=== PATIENT | female | born 1995 | race Caucasian/White ===

== ENCOUNTER 2017-12-22 22:26 | Emergency (ER) | payer BC ==
[2017-12-22] MEDS ORDERED: IBUPROFEN 600 MG TAB PO ONE (22:44)
--- NOTE | 2017-12-22 23:02 | EDPHY ---
H & P Stated Complaint: c/o blanco after accidentally being hit in back of head with metal thermos Time Seen by Provider: 12/22/17 22:34 HPI/ROS: Chief Complaint: Head injury HPI: 22-year-old woman was accidentally struck in the head by a metal dermis when her friend was swinging at an insect. She did not have a loss of conscious. She is complaining of a headache. No nausea or vomiting. No vision or hearing changes. She has a history of concussions in the past was concerned that she might have another concussion. Headache now is a 7/10. She did take some Tylenol earlier. ROS: 10 point Review of Systems is negative except as noted in the HPI. PMH: Concussion Social History: Positive smoking, occasional alcohol, no recreational drug use Family History: non-contributory Physical Exam: Gen: Awake, Alert, No Distress HEENT: Scalp: Mild tenderness in the right occipital area, no hematoma, no step-offs or crepitus Nose: no rhinorrhea Eyes: PERRLA, EOMI Mouth: Moist mucosa Neck: Supple, no JVD Chest: nontender, lungs clear to auscultation Heart: S1, S2 normal, no murmur Abd: Soft, non-tender, no guarding Back: no CVA tenderness, no midline tenderness Ext: no edema, non-tender Skin: no rash Neuro: CN II-XII intact, Sensation grossly intact, Strength 5/5 in bilateral upper and lower extremities - Medical/Surgical History Hx Asthma: No Hx Chronic Respiratory Disease: No Hx Diabetes: No Hx Cardiac Disease: No Hx Renal Disease: No Hx Cirrhosis: No Hx Alcoholism: No Hx HIV/AIDS: No Hx Splenectomy or Spleen Trauma: No Other PMH: ibs, gerd - Social History Smoking Status: Never smoked Constitutional: Initial Vital Signs Temperature (C) 36.6 C 12/22/17 22:29 Heart Rate 85 12/22/17 22:29 Respiratory Rate 16 12/22/17 22:29 Blood Pressure 129/99 H 12/22/17 22:29 O2 Sat (%) 95 12/22/17 22:29 O2 Delivery Mode Room Air Allergies/Adverse Reactions: Penicillins Allergy (Verified 12/22/17 22:32) Home Medications: Medication Instructions Recorded Spironolactone 12/22/17 Medical Decision Making ED Course/Re-evaluation: Patient has a headache status post struck in the head with a metal dermis. She had no loss of consciousness. She is completely neurologically intact. No significant findings on examination. I do not believe she has findings to suggest intracranial bleed. She will be given head injury instructions, follow up with primary care physician. - Data Points Medications Given: Discontinued Medications Ibuprofen (Motrin) 600 mg PO EDNOW ONE Stop: 12/22/17 22:45 Last Admin: 12/22/17 22:47 Dose: 600 mg Departure - Departure Disposition: Home, Routine, Self-Care Clinical Impression: Head injury Condition: Good Instructions: Head Injury (ED) Additional Instructions: Follow up with primary care physician in 4-5 days if symptoms are not improving. You may take ibuprofen and acetaminophen as needed for headache. Return to the emergency department for worsening headache, confusion, vomiting, fevers chills, or any other concerns. Referrals: NONE *PRIMARY CARE P,. [Primary Care Provider] - As per Instructions
[2017-12-22 23:16] VITALS: BP 109/80
== END 2017-12-22 23:17 | disposition home or self-care (01) ==
DX: S09.90XA Unspecified injury of head, initial encounter (principal); W22.8XXA Striking against or struck by other objects, initial encounter